=== PATIENT | male | born 2000 | race Caucasian/White ===

== ENCOUNTER 2020-01-14 15:57 | Emergency (ER) | payer OTHER ==
[2020-01-14] MEDS ORDERED: Sodium Chloride 0.9% 1,000 ML ONE (16:25)
[2020-01-14] MEDS ORDERED: Ketorolac Tromethamine 30 MG/ML VIAL ONE (16:25)
[2020-01-14 16:30] LABS: Bilirubin Negative (Negative); Blood, Urine Negative (Negative); Clarity Clear (Clear); Glucose, Urine (Dipstick) Negative (Negative); Leukocyte Negative (Negative); Nitrite Negative (Negative); Protein, Urine (Dipstick) Negative (Neg-Trace); Urobilinogen 0.2 mg/dL (Less than 2)
[2020-01-14 16:30] LABS: #Basophils 0.1 thou/uL (0.0-0.2); #Lymphocytes 0.5 thou/uL (1.20-3.40); #Monocytes 0.5 thou/uL (0.11-0.59); #Neutrophils 6.5 thou/uL (1.40-6.50); %Basophils 0.8 % (0.0-1.0); %Eosinophils 0.5 % (0.0-10.0); %Lymphocytes 6.5 % (28.0-48.0); %Monocytes 7.1 % (0.0-4.0); %Neutrophils 85.1 % (31.0-61.0); Hemoglobin 15.8 g/dL (14.0-18.0); Mean Corpuscular HGB CONC 33.3 g/dL (32.0-36.0); Mean Corpuscular Hemoglobin 30.4 pg (25.0-35.0); Mean Corpuscular Volume 91.3 fL (78.0-98.0); Mean Platelet Volume 7.2 fL (7.4-10.4); Platelet Count 233 thou/uL (130-400); RBC Distribution Width 11.1 % (11.5-14.5); White Blood Cell (WBC) Count 7.7 thou/uL (4.8-10.8)
[2020-01-14 16:47] LABS: ALT (SGPT) 17 U/L (8-55); AST (SGOT) 23 U/L (5-34); Albumin 4.2 g/dL (3.5-5.0); Alkaline Phosphatase 103 U/L (50-130); Anion Gap 12 mmol/L (10-20); BUN (Urea Nitrogen) 7 mg/dL (8.9-20.6); Bilirubin, Total 0.7 mg/dL (0.2-1.2); Calc. Creatinine Clearance 0 mL/min (70-130); Calcium 9.1 mg/dL (7.8-10.44); Carbon Dioxide 28 mmol/L (22-29); Chloride 101 mmol/L (98-107); Estimated GFR-MDRD Greater than 90; Globulin 2.7 g/dL (2.4-3.5); Glucose 113 mg/dL (70-105); Lipase 6 U/L (8-78); Potassium 3.9 mmol/L (3.5-5.1); Protein, Total 6.9 g/dL (6.0-8.3); Sodium 137 mmol/L (136-145)
--- NOTE | 2020-01-14 19:29 | CT ---
CT ABDOMEN AND PELVIS WITHOUT IV CONTRAST: 01/14/20 INDICATIONS: Right flank pain. No comparison. FINDINGS: Lung bases are clear. Liver, spleen and pancreas unremarkable on this unenhanced study. Adrenal glands normal. Kidneys unremarkable. No evidence of hydronephrosis. No evidence of urinary tract calculus identified . The urinary bladder is contracted and not adequately evaluated. Review of the bowel is limited due to lack of IV and oral enteric contrast. There are no significant intra-abdominal fat planes which would separate the bowel loops. Small bowel appears normal caliber with no evidence of dilatation. There is prominent stool throughou t the colon. There is a dilated fluid filled tubular structure in the right lower quadrant which eduin ures up to 15 mm. This could potentially represent a dilated appendix. No significant inflammation is associated with this tubular structure. Recommend clinical correlation. Appendicitis is not excluded on this study. There is no significant free fluid. IMPRESSION: Exam is limited due to lack of IV and oral contrast making evaluation of the bowel and appendix subop timal. There is a dilated fluid filled tubular structure in the right lower quadrant which could pote ntially represent a dilated appendix. Recommend clinical correlation. If physical findings are equivo scott, further evaluation could be performed with oral and IV contrast. Delayed oral contrast scanning should be performed to allow for opacification of the entire small bowel and right colon. Findings were relayed to the Emergency Room physician. Code CR POS: [id number]
== END 2020-01-14 17:23 | disposition home or self-care (01) ==
LOC: MADERS 15:57
DX: R10.11 Right upper quadrant pain (principal)
CPT/HCPCS: 74176; 80053; 81003; 83690; 85025; 96361; 96374; J1885; J7050

== ENCOUNTER 2021-03-14 08:10 | Emergency (ER) | payer OTHER, SELFPAY ==
[~2021-03-14 08:10] MED LIST: Magnesium Citrate 300 ML BOT ONE
== END 2021-03-14 08:47 | disposition home or self-care (01) ==
LOC: MADERS 08:10
DX: K59.00 Constipation, unspecified (principal)
CPT/HCPCS: 99283